=== PATIENT | male | born 1990 ===

== ENCOUNTER 2023-08-22 16:31 | Emergency (ER) | payer OTHER, SELFPAY ==
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
[2023-08-22 17:48] VITALS: BP 127/49; PULSE 110; RESP 20; TEMP 36.3; O2SAT 100; BMI 44.8
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
--- NOTE | 2023-08-22 19:27 | PC.NURSE ---
Pt not at bedside. Left without being seen.
== END 2023-08-22 19:48 | disposition left against medical advice (07) ==
PROVIDERS: Emergency Provider Emergency Medicine
DX: R51.9 Headache, unspecified (principal); M54.2 Cervicalgia; M25.562 Pain in left knee; M25.561 Pain in right knee
CPT/HCPCS: 70450; 72125; 99281; 99284